=== PATIENT | male | born 1975 | race African-American/Black ===

== ENCOUNTER → 2017-11-15 | Outpatient (CLI) | payer OTHER | END | disposition home or self-care (01) | LOC: CFH 15:17 | PROVIDERS: ATTEND Family Medicine | DX: M54.31 Sciatica, right side (principal); M54.9 Dorsalgia, unspecified | CPT/HCPCS: 72100 ==

== ENCOUNTER 2017-11-17 09:08 | Emergency (ER) | payer OTHER ==
[2017-11-17 09:13] VITALS: BP 144/101
== END 2017-11-17 10:36 | disposition home or self-care (01) ==
LOC: ED 10:18
DX: S39.012A Strain of muscle, fascia and tendon of lower back, initial encounter (principal); X58.XXXA Exposure to other specified factors, initial encounter; Y93.B2 Activity, push-ups, pull-ups, sit-ups; Y92.89 Other specified places as the place of occurrence of the external cause; Y99.8 Other external cause status
CPT/HCPCS: 99283

== ENCOUNTER 2018-05-22 08:04 | Emergency (ER) | payer OTHER ==
[~2018-05-22] VITALS: Ht 180.3 cm; Wt 97.0 kg
[2018-05-22 08:14] VITALS: BP 136/87
[2018-05-22] MEDS ORDERED: FLUORESCEIN OPHTHALMIC 1 MG STRIP ONE (08:34)
[2018-05-22] MEDS ORDERED: PROPARACAINE OPHTH 0.5%, 15ML ONE (08:34)
[2018-05-22] MEDS ORDERED: FLUORESCEIN OPHTHALMIC 1 MG STRIP EACHEYE ONE (09:00)
[2018-05-22] MEDS ORDERED: PROPARACAINE OPHTH 0.5%, 15ML EACHEYE ONE (09:00)
--- NOTE | 2018-05-22 09:30 | NUR ---
Patient/Caregiver given discharge instructions and they have confirmed that they understand the instructions. Patient ambulatory with steady gait.
== END 2018-05-22 09:46 | disposition home or self-care (01) ==
LOC: ED 09:18
DX: S00.12XA Contusion of left eyelid and periocular area, initial encounter (principal); X58.XXXA Exposure to other specified factors, initial encounter; Y93.89 Activity, other specified; Y92.89 Other specified places as the place of occurrence of the external cause; Y99.8 Other external cause status
CPT/HCPCS: 99283